=== PATIENT | male | born 1985 | race Two or more races ===

== ENCOUNTER 2016-11-04 22:15 | Emergency (ER) | payer OTHER ==
[2016-11-05] MEDS ORDERED: IBUPROFEN 600 MG TABLET ONE (01:33)
[2016-11-05] MEDS ORDERED: ACETAMINOPHEN 500 MG TABLET ONE (01:33)
== END 2016-11-05 02:39 | disposition home or self-care (01) ==
LOC: ED 22:15
DX: M54.5 Low back pain (principal); V43.62XA Car passenger injured in collision with other type car in traffic accident, initial encounter; Y92.410 Unspecified street and highway as the place of occurrence of the external cause